=== PATIENT | male | born 1970 | race Caucasian/White ===

== ENCOUNTER 2016-08-24 09:17 | Emergency (ER) | payer OTHER ==
[2016-08-24 09:27] VITALS: BP 132/76
--- NOTE | 2016-08-24 10:39 | UC ---
Abdominal Pain Male HPI - HPI Summary HPI Summary: Patient presents with RUQ and LUQ pain x 1 hour this morning which was 10/10 pain, sharp and shooting with no associated N/V/C/D. Denies pain currently. Patient awoke with no symptoms, but within 1 hour developed pain. He was able to have coffee and a BM shortly after which did not make the pain better and was normal in color and consistency. Denies any excess burping or flatulence. Hx of hypercholesterolemia for which he takes finofibrate and simvastatin. Hx of mild case of GERD only after eating large meals at night and does not require medicatoin. Hx of allergies for which he takes Claritin and flonase. Patient is otherwise healthy. Strong family cardiac history. Denies abdominal surgeries. Denies smoking. Drinks occasionally. Patient was diaphoretic x 1 hour with sharp abdominal pain, but denies SOB or radiation of pain or pressure. Denies visual disturbances. - History of Current Complaint Chief Complaint: UCAbdominalPain Stated Complaint: ABD PAIN Time Seen by Provider: 08/24/16 10:16 Hx Obtained From: Patient Onset/Duration: Sudden Onset Timing: Intermittent Episodes Lasting: - 1 hour Severity Initially: Severe Severity Currently: None Pain Intensity: 10 Pain Scale Used: 0-10 Numeric Location: Discrete At: RUQ, Discrete At: RLQ Radiates: No Character: Burning, Colicy Aggravating Factor(s):: Nothing Associated Signs And Symptoms: Positive: Diaphoresis - Risk Factors Testicular Torsion: Negative Cardiac Risk Factors: Elevated Lipids - Allergies/Home Medications Allergies/Adverse Reactions: Allergies Allergy/AdvReac Type Severity Reaction Status Date / Time No Known Allergies Allergy Verified 08/24/16 09:27 Home Medications: Home Medications Fluticasone NASAL SPRAY 50MCG* [Flonase NASAL SPRAY 50MCG*] 2 spray BOTH NARES DAILY 08/24/16 [History Confirmed 08/24/16] Loratadine & Pseudoephedrine [Claritin-D 24 Hour 10-240 mg] 1 tab PO 08/24/16 [ History] Simvastatin TAB(NF) [Zocor(NF)] 10 mg PO 1700 08/24/16 [History Confirmed ] PMH/Surg Hx/FS Hx/Imm Hx Previously Healthy: Yes Cardiovascular History: Other - hypercholesterolemia Other Cardiovascular History: HCL - Surgical History Surgical History: None - Family History Known Family History: Positive: Cardiac Disease, Hypertension - Social History Occupation: Employed Full-time Lives: With Family Alcohol Use: Occasionally Substance Use Type: None Smoking Status (MU): Never Smoked Tobacco Review of Systems Constitutional: Negative Skin: Negative Eyes: Negative Respiratory: Negative Cardiovascular: Negative Gastrointestinal: Abdominal Pain Genitourinary: Negative Neurological: Negative Psychological: Negative All Other Systems Reviewed And Are Negative: Yes Physical Exam Triage Information Reviewed: Yes Appearance: Well-Appearing, No Pain Distress, Well-Nourished Vital Signs: Initial Vital Signs Temp 98.1 F 08/24/16 09:22 Pulse 65 08/24/16 09:22 Resp 18 08/24/16 09:22 BP 132/76 08/24/16 09:22 Pulse Ox 100 08/24/16 09:22 Vital Signs Reviewed: Yes Eye Exam: Normal Eyes: Positive: Conjunctiva Clear Neck exam: Normal Neck: Positive: No Lymphadenopathy Respiratory Exam: Normal Respiratory: Positive: Chest non-tender Cardiovascular Exam: Other - IRR Abdomen Description: Positive: No Organomegaly, Soft, Other: - + murphys sign, negative mcburneys point; no hepatomegaly; no CVA tenderness. Bowel Sounds: Positive: Hypoactive Musculoskeletal Exam: Normal Musculoskeletal: Positive: Strength Intact Neurological Exam: Normal Neurological: Positive: Alert Psychological Exam: Normal Psychological: Positive: Normal Response To Family Skin Exam: Normal Abd Pain Male Course/Dx - Course Course Of Treatment: Patient arrives to with CC of RUQ and LUQ pain which lasted approx 1 hour this morning with resolution prior to arrival to . On exam, + murphys sign, negative mcburneys point; no hepatomegaly; no CVA tenderness bilaterally. US shows : IMPRESSION: 1. HOMOGENOUSLY INCREASED ECHOGENICITY AND MILD HEPATOMEGALY COULD BE SEEN IN THE SETTING. OF HEPATIC STEATOSIS OR OTHER CHRONIC INFILTRATIVE DISEASE. 2. NO SONOGRAPHIC EVIDENCE OF ACUTE INFLAMMATORY CHANGE OF THE GALLBLADDER OR BILIARY. OBSTRUCTION. EKG shows no acute changes, PAC's. No evidence of CO. Patient advised to go to ED if symptoms return. Patient made aware of results and plan and is OK with discharge. Medications reviewed with patient. - Differential Dx/Clinical Impression Differential Diagnosis/HQI/PQRI: Gall Bladder Disease, Pancreatitis, Peptic Ulcer Disease, Other Provider Diagnoses: Abdominal Pain Discharge - Discharge Plan Condition: Stable Disposition: HOME Patient Education Materials: Peptic Ulcer (ED) Referrals: Stephen Cyr MD [Primary Care Provider] - Additional Instructions: I have given you information about peptic ulcers, this is not your diagnosis If you develop any worsening symptoms, fever, pain or aches, go to the ED. Follow up with your doctor.
--- NOTE | 2016-08-24 11:50 | RAD ---
HISTORY: Right upper quadrant pain with a + Farooq sign on physical examination. COMPARISONS: None TECHNIQUE: Multiple transverse and longitudinal ultrasound images were obtained of the right upper quadrant. FINDINGS: Evaluation was limited as the patient was not n.p.o. prior to the exam and overlying bowel gas Limited sonographic imaging of the underlying viscera. LIVER: The liver exhibits homogenous increased echogenicity. The liver is top normal measuring 20.2 cm in maximum dimension. Normal hepatic and portal venous blood flow is duplicated with color flow imaging. There is no gross intrahepatic biliary duct dilatation. GALLBLADDER AND EXTRAHEPATIC BILIARY DUCT: The gallbladder is normal in appearance without intraluminal stones or other soft tissue masses. There is no pericholecystic fluid or gallbladder wall thickening. The common bile duct measures a maximum diameter of 3 mm. PANCREAS: Unable to visualize in any meaningful way due to overlying bowel gas. RIGHT KIDNEY: The right kidney is normal in size, morphology and echogenicity. AORTA AND IVC: Unable to visualize thoroughly due to overlying bowel gas. IMPRESSION: 1. HOMOGENOUSLY INCREASED ECHOGENICITY AND MILD HEPATOMEGALY COULD BE SEEN IN THE SETTING OF HEPATIC STEATOSIS OR OTHER CHRONIC INFILTRATIVE DISEASE. 2. NO SONOGRAPHIC EVIDENCE OF ACUTE INFLAMMATORY CHANGE OF THE GALLBLADDER OR BILIARY OBSTRUCTION.
== END 2016-08-24 12:09 | disposition home or self-care (01) ==
LOC: UCEAST 09:17
DX: R10.11 Right upper quadrant pain (principal); E78.00 Pure hypercholesterolemia, unspecified; R10.12 Left upper quadrant pain
CPT/HCPCS: 76705; 93005; 99211; G0463

== ENCOUNTER 2019-03-19 15:30 | Emergency (ER) | payer OTHER ==
[2019-03-19 16:01] VITALS: BP 142/93
[2019-03-19] MEDS ORDERED: Naproxen TAB* 250 MG PO ONE (16:39)
--- NOTE | 2019-03-19 16:46 | UC ---
Upper Extremity HPI - HPI Summary HPI Summary: 49-year-old white male presents with left forearm intermittent numbness and tingling with decreased sensation associated with pain in the trapezial muscle medial to the left scapula since yesterday morning. Patient states he woke up with the pain denies any injury to this to the left arm or the left shoulder. - History of Current Complaint Chief Complaint: UCUpperExtremity Stated Complaint: SHOULDER DISCOMFORT POSSIBLE PINCHED NERVE Time Seen by Provider: 03/19/19 16:32 Hx Obtained From: Patient Onset/Duration: Sudden Onset Severity Initially: Moderate Severity Currently: Moderate Pain Intensity: 7 Location Of Pain: Radiates To - left arm and forerarm Character: Sharp, Dull, Aching Aggravating Factor(s): Movement, Lifting, Flexion, Extension, Abduction Alleviating Factor(s): Nothing Associated Signs And Symptoms: Positive: Negative - Allergies/Home Medications Allergies/Adverse Reactions: Allergies Allergy/AdvReac Type Severity Reaction Status Date / Time No Known Allergies Allergy Verified 03/19/19 16:01 PMH/Surg Hx/FS Hx/Imm Hx Previously Healthy: Yes - Surgical History Surgical History: Yes Surgery Procedure, Year, and Place: oral surgery - Family History Known Family History: Positive: Cardiac Disease, Hypertension - Social History Alcohol Use: Occasionally Substance Use Type: None Smoking Status (MU): Never Smoked Tobacco Review of Systems All Other Systems Reviewed And Are Negative: Yes Constitutional: Positive: Negative Skin: Positive: Negative Eyes: Positive: Negative ENT: Positive: Negative Respiratory: Positive: Negative Cardiovascular: Positive: Negative Gastrointestinal: Positive: Negative Genitourinary: Positive: Negative Motor: Positive: Negative Neurovascular: Positive: Negative Musculoskeletal: Positive: Other: - Left medial trapezial pain Psychological: Positive: Negative Physical Exam - Summary Physical Exam Summary: Vital Signs Reviewed: Yes Eye Exam: Normal Eyes: Positive: Conjunctiva Clear ENT: Positive: Normal ENT inspection Neck: Positive: Supple Respiratory Exam: Normal Respiratory: Positive: Lungs clear, Normal breath sounds. Negative: Crackles, Rhonchi, Stridor, Wheezing Cardiovascular Exam: Normal Cardiovascular: Positive: RRR Abdomen: NT/ND Musculoskeletal Exam: Left medial trapezial tenderness, mild paresthesia in the left forearm radiating to digits 2,3.4.5 and left and left anconeus. FROM in left shoulder and neck Neurological Exam: Normal Psychological Exam: Normal Skin Exam: Normal Triage Information Reviewed: Yes Vital Signs: Initial Vital Signs Temp 37.2 C 03/19/19 15:52 Pulse 88 03/19/19 15:52 Resp 16 03/19/19 15:52 BP 142/93 03/19/19 15:52 Pulse Ox 96 03/19/19 15:52 Upper Extremity Course/Dx - Course Course Of Treatment: History of cervical spine reveals narrowing of joint space between C5 6 7 which can explain current cervicalgia symptoms with mild impingement symptoms radiating to the dermatomes of C6,C7, 8. Advised patient to obtain MRI of the cervical spine examining the nerve roots coming out of the cervical spine to assess the extent of damage to the nerve roots.. 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 - Differential Dx/Diagnosis Provider Diagnosis: Cervicalgia Discharge ED - Sign-Out/Discharge Documenting (check all that apply): Patient Departure All imaging exams completed and their final reports reviewed: Yes - Discharge Plan Condition: Stable Disposition: HOME Prescriptions: Cyclobenzaprine TAB* [Flexeril 10 MG TAB*] 10 mg PO BEDTIME 5 Days #5 tab Naproxen [Naproxen 500 mg tab] 500 mg PO BID 10 Days #20 tablet Patient Education Materials: Cervical Strain (ED) Referrals: Ross Ramirez NP [Primary Care Provider] - Additional Instructions: Please follow up with physical therapy for postural correction exercises to minimize further progression of cervical nerve impingement with her PCP to obtain MRI. - Billing Disposition and Condition Condition: STABLE Disposition: Home
[2019-03-19] MEDS ORDERED: Cyclobenzaprine TAB* 10 MG PO ONE (17:21)
== END 2019-03-19 17:32 | disposition home or self-care (01) ==
LOC: UCEAST 15:30
DX: M54.2 Cervicalgia (principal); M25.512 Pain in left shoulder
CPT/HCPCS: 72040; 99211; A9270-GY; G0463